=== PATIENT | female | born 1975 | race Caucasian/White ===

== ENCOUNTER 2016-12-02 04:06 | Emergency (ER) | payer OTHER ==
[~2016-12-02] VITALS: Ht 167.6 cm; Wt 84.1 kg
[2016-12-02] MEDS ORDERED: FURO20 PO (04:17)
[2016-12-02 06:28] VITALS: BP 133/84
== END 2016-12-02 06:29 | disposition home or self-care (01) ==
LOC: MERGE 04:07 → EMS 04:07
DX: R07.89 Other chest pain (principal); F17.210 Nicotine dependence, cigarettes, uncomplicated; X58.XXXA Exposure to other specified factors, initial encounter; Y93.89 Activity, other specified; Y92.89 Other specified places as the place of occurrence of the external cause; Y99.8 Other external cause status
CPT/HCPCS: 93005; 99283; 99406

== ENCOUNTER 2016-12-20 15:43 | Emergency (ER) | payer OTHER ==
[~2016-12-20] VITALS: Ht 167.6 cm; Wt 84.1 kg
[~2016-12-20 15:43] MED LIST: FURO20 PO
[2016-12-20 16:29] VITALS: BP 130/80
== END 2016-12-20 17:07 | disposition home or self-care (01) ==
LOC: EMS 15:45 → MERGE 15:45 → EMS 17:07
DX: R60.0 Localized edema (principal); Z87.891 Personal history of nicotine dependence
CPT/HCPCS: 99283

== ENCOUNTER 2016-12-27 03:28 | Emergency (ER) | payer OTHER ==
[~2016-12-27] VITALS: Ht 167.6 cm; Wt 83.2 kg
[2016-12-27 05:03] VITALS: BP 122/70
== END 2016-12-27 05:12 | disposition home or self-care (01) ==
LOC: EMS 03:30
DX: K02.9 Dental caries, unspecified (principal)
CPT/HCPCS: 99283

== ENCOUNTER 2017-01-03 02:38 | Emergency (ER) | payer OTHER ==
[~2017-01-03] VITALS: Ht 167.6 cm; Wt 88.6 kg
[2017-01-03 03:16] VITALS: BP 136/90
== END 2017-01-03 03:37 | disposition home or self-care (01) ==
LOC: EMS 02:39
DX: R60.0 Localized edema (principal)
CPT/HCPCS: 99281; 99283

== ENCOUNTER 2017-01-10 07:03 | Emergency (ER) | payer OTHER ==
[~2017-01-10] VITALS: Ht 167.6 cm; Wt 81.0 kg
[2017-01-10] MEDS ORDERED: FURO20 PO (07:13)
[2017-01-10 08:37] VITALS: BP 135/77
[2017-01-10 08:40] LABS: BASOPHILS % (AUTO) 0.6 % (0.0-2.0); EOSINOPHILS % (AUTO) 0.8 % (1.0-6.0); HEMATOCRIT 41.8 % (36-46); HEMOGLOBIN 14.4 g/dL (12.0-16.0); LYMPHOCYTES # (AUTO) 2.4 K/uL (1.0-4.8); LYMPHOCYTES % (AUTO) 34.8 % (22.0-44.0); MEAN CORPUSCULAR HEMOGLOBIN 29.4 pg (26.0-34.0); MEAN CORPUSCULAR HGB CONC 34.5 G/dL (31.0-37.0); MEAN CORPUSCULAR VOLUME 85 fL (80-100); MONOCYTES # (AUTO) 0.6 K/uL (0.1-1.0); MONOCYTES % (AUTO) 8.8 % (2.0-9.0); NEUTROPHILS # (AUTO) 3.9 K/uL (1.8-7.7); PLATELET COUNT (AUTO) 230 K/uL (150-450); RED CELL DISTRIBUTION WIDTH 13.4 % (11.5-14.5)
[2017-01-10 08:57] LABS: ALANINE AMINOTRANSFERASE 16 U/L (12-78); ALBUMIN 3.1 g/dL (3.4-5.0); ANION GAP 4 mmol/L (8-16); ASPARTATE AMINOTRANSFERASE 16 U/L (15-37); BILIRUBIN,TOTAL 0.2 mg/dL (0.1-1.0); CALCIUM, TOTAL 8.7 mg/dL (8.8-10.5); CARBON DIOXIDE 32 mmol/L (22-29); CHLORIDE 101 mmol/L (98-107); CREATININE 0.64 mg/dL (0.60-1.30); GLOMERULAR FILTR. RATE CALC > 60 mL/min (>60); SODIUM SERUM 137 mmol/L (136-145); TOTAL PROTEIN, SERUM 6.5 g/dL (6.4-8.2); UREA NITROGEN, BLOOD 10 mg/dL (7-18)
[2017-01-10 08:58] LABS: POTASSIUM 2.7 mmol/L (3.5-5.1)
[2017-01-10] MEDS ORDERED: POTASSIUM CHLORIDE 20 MEQ ER TABLET PO ONE (09:30)
== END 2017-01-10 10:02 | disposition home or self-care (01) ==
LOC: EMS 07:04
DX: R60.0 Localized edema (principal); E87.6 Hypokalemia; M79.661 Pain in right lower leg; M79.662 Pain in left lower leg; Z98.84 Bariatric surgery status
CPT/HCPCS: 99284

== ENCOUNTER 2017-01-27 16:10 | Emergency (ER) | payer OTHER ==
[~2017-01-27] VITALS: Ht 167.6 cm; Wt 84.1 kg
[2017-01-27] MEDS ORDERED: POTA25TA7 PO (16:44)
[2017-01-27 18:35] VITALS: BP 141/82
== END 2017-01-27 18:41 | disposition home or self-care (01) ==
LOC: EMS 16:11
DX: R60.0 Localized edema (principal); Z76.0 Encounter for issue of repeat prescription
CPT/HCPCS: 99283; 99284

== ENCOUNTER 2017-02-12 16:17 | Emergency (ER) | payer OTHER ==
[~2017-02-12] VITALS: Ht 167.6 cm; Wt 87.7 kg
[~2017-02-12 16:17] MED LIST changes: +POTA25TA7 PO
[2017-02-12 16:52] VITALS: BP 134/100
== END 2017-02-12 17:16 | disposition home or self-care (01) ==
LOC: EMS 16:21
DX: Z76.0 Encounter for issue of repeat prescription (principal); R03.0 Elevated blood-pressure reading, without diagnosis of hypertension
CPT/HCPCS: 99283

== ENCOUNTER 2017-02-28 03:34 | Emergency (ER) | payer OTHER ==
[~2017-02-28] VITALS: Ht 170.2 cm; Wt 84.1 kg
[2017-02-28 04:00] VITALS: BP 132/77
== END 2017-02-28 04:25 | disposition home or self-care (01) ==
LOC: EMS 03:35
DX: R60.0 Localized edema (principal)
CPT/HCPCS: 99283

== ENCOUNTER 2017-05-05 08:08 | Emergency (ER) | payer OTHER ==
[~2017-05-05] VITALS: Ht 167.6 cm; Wt 86.4 kg
[2017-05-05] MEDS ORDERED: BENZOCAINE/MENTHOL LOZENGE [8 LOZENGES/PACKET] PO ONE (09:45)
[2017-05-05 10:44] LABS: RAPID GROUP A STREP NEGATIVE (NEGATIVE)
[2017-05-05 10:48] LABS: INFLUENZA TYPE A NEGATIVE FOR TYPE A (NEGATIVE); INFLUENZA TYPE B POSITIVE FOR TYPE B (NEGATIVE)
[2017-05-05 10:55] VITALS: BP 135/89
== END 2017-05-05 11:23 | disposition home or self-care (01) ==
LOC: EMS 08:13
DX: J11.1 Influenza due to unidentified influenza virus with other respiratory manifestations (principal); J02.9 Acute pharyngitis, unspecified; H92.09 Otalgia, unspecified ear; Z98.84 Bariatric surgery status
CPT/HCPCS: 87430; 87804; 99284

== ENCOUNTER 2019-04-16 03:18 | Emergency (ER) | payer OTHER ==
[~2019-04-16] VITALS: Ht 167.6 cm; Wt 102.3 kg
[2019-04-16] MEDS ORDERED: IBUPROFEN 600 MG TABLET PO ONE (04:30)
[2019-04-16] MEDS ORDERED: CLINDAMYCIN HCL 150 MG CAPSULE PO ONE (04:30)
[2019-04-16 05:16] VITALS: BP 130/80
== END 2019-04-16 05:17 | disposition home or self-care (01) ==
LOC: EMS 03:18
DX: K04.7 Periapical abscess without sinus (principal)

== ENCOUNTER 2019-07-17 10:59 | Emergency (ER) | payer OTHER ==
[~2019-07-17] VITALS: Ht 167.6 cm; Wt 109.0 kg
[2019-07-17 13:47] LABS: BASOPHILS % (AUTO) 1.1 % (0.0-2.0); EOSINOPHILS % (AUTO) 0.8 % (1.0-6.0); HEMOGLOBIN 12.6 g/dL (12.0-16.0); LYMPHOCYTES % (AUTO) 25.9 % (22.0-44.0); MEAN CORPUSCULAR HEMOGLOBIN 23.5 pg (26.0-34.0); MEAN CORPUSCULAR HGB CONC 32.3 G/dL (31.0-37.0); MEAN CORPUSCULAR VOLUME 73 fL (80-100); MONOCYTES # (AUTO) 0.8 K/uL (0.1-1.0); MONOCYTES % (AUTO) 10.5 % (2.0-9.0); NEUTROPHILS # (AUTO) 4.7 K/uL (1.8-7.7); NEUTROPHILS % (AUTO) 61.7 % (40.0-70.0); PLATELET COUNT (AUTO) 337 K/uL (150-450); RED BLOOD CELL COUNT(AUTO) 5.35 MIL/uL (4.00-5.20); RED CELL DISTRIBUTION WIDTH 16.6 % (11.5-14.5)
[2019-07-17 14:05] LABS: ANION GAP 9 mmol/L (8-16); CALCIUM, TOTAL 9.2 mg/dL (8.8-10.5); CARBON DIOXIDE 29 mmol/L (22-29); CHLORIDE 98 mmol/L (98-107); CREATININE 0.46 mg/dL (0.60-1.30); GLOMERULAR FILTR. RATE CALC > 60 mL/min (>60); GLUCOSE,RANDOM 102 mg/dL (70-110); POTASSIUM 3.2 mmol/L (3.5-5.1); SODIUM SERUM 136 mmol/L (136-145); UREA NITROGEN, BLOOD 11 mg/dL (7-18)
[2019-07-17 14:15] LABS: ALANINE AMINOTRANSFERASE 16 U/L (12-78); ALBUMIN 3.9 g/dL (3.4-5.0); ALKALINE PHOSPHATASE 74 U/L (46-116); ASPARTATE AMINOTRANSFERASE 18 U/L (15-37); BILIRUBIN,TOTAL 0.4 mg/dL (0.1-1.0); CREATINE KINASE, TOTAL ONLY 33 U/L (26-192); TOTAL PROTEIN, SERUM 8.8 g/dL (6.4-8.2)
[2019-07-17 14:16] LABS: B-TYPE NATRIURETIC PEPTIDE 7 pg/mL (0-100)
[2019-07-17] MEDS ORDERED: POTASSIUM CHLORIDE 20 MEQ ER TABLET PO ONE (14:30)
[2019-07-17 15:00] VITALS: BP 154/83
== END 2019-07-17 15:15 | disposition home or self-care (01) ==
LOC: EMS 11:00
DX: R60.0 Localized edema (principal)
CPT/HCPCS: 93005

== ENCOUNTER 2019-12-07 08:38 | Emergency (ER) | payer OTHER ==
[~2019-12-07] VITALS: Ht 170.2 cm; Wt 120.5 kg
[2019-12-07 08:56] VITALS: BP 135/81
== END 2019-12-07 09:17 | disposition home or self-care (01) ==
LOC: EMS 08:40
DX: R60.0 Localized edema (principal); I10 Essential (primary) hypertension; Z76.0 Encounter for issue of repeat prescription
CPT/HCPCS: Z7502

== ENCOUNTER 2020-02-02 05:06 | Emergency (ER) | payer OTHER ==
[~2020-02-02] VITALS: Ht 170.2 cm; Wt 125.0 kg
[2020-02-02] MEDS ORDERED: ACETAMINOPHEN 325 MG TABLET PO ONE (06:15)
[2020-02-02] MEDS ORDERED: LIDOCAINE 5% TRANSDERMAL PATCH TD ONE (06:15)
[2020-02-02 07:10] VITALS: BP 132/84
[2020-02-02] MEDS ORDERED: IBUPROFEN 400 MG TABLET PO ONE (07:15)
== END 2020-02-02 07:32 | disposition home or self-care (01) ==
LOC: EMS 05:07
DX: M79.622 Pain in left upper arm (principal); I10 Essential (primary) hypertension
CPT/HCPCS: Z7502; Z7610

== ENCOUNTER 2020-02-17 00:55 | Emergency (ER) | payer OTHER ==
[~2020-02-17] VITALS: Ht 170.2 cm; Wt 122.7 kg
[2020-02-17] MEDS ORDERED: FURO-152 PO (01:15)
[2020-02-17 02:15] VITALS: BP 148/82
== END 2020-02-17 02:35 | disposition home or self-care (01) ==
LOC: EMS 00:59
DX: R60.0 Localized edema (principal); Z76.0 Encounter for issue of repeat prescription
CPT/HCPCS: Z7502

== ENCOUNTER 2020-04-06 15:23 | Emergency (ER) | payer OTHER ==
[~2020-04-06] VITALS: Ht 177.8 cm; Wt 104.5 kg
[~2020-04-06 15:23] MED LIST changes: +FURO-152 PO; -FURO20 PO; -POTA25TA7 PO
[2020-04-06 17:11] VITALS: BP 144/99
== END 2020-04-06 18:01 | disposition home or self-care (01) ==
LOC: EMS 15:23
DX: M79.2 Neuralgia and neuritis, unspecified (principal); Z76.0 Encounter for issue of repeat prescription
CPT/HCPCS: 93971; 99284; Z7502

== ENCOUNTER 2020-04-08 19:48 | Emergency (ER) | payer OTHER ==
[~2020-04-08] VITALS: Ht 170.2 cm; Wt 115.9 kg
[2020-04-08] MEDS ORDERED: IBUPROFEN 600 MG TABLET PO ONE (20:15)
[2020-04-08 21:21] VITALS: BP 122/76
== END 2020-04-08 22:08 | disposition home or self-care (01) ==
LOC: EMS 19:50
DX: S90.32XA Contusion of left foot, initial encounter (principal); I10 Essential (primary) hypertension; Z79.899 Other long term (current) drug therapy; W01.0XXA Fall on same level from slipping, tripping and stumbling without subsequent striking against object, initial encounter; Y93.89 Activity, other specified; Y92.89 Other specified places as the place of occurrence of the external cause; Y99.8 Other external cause status
CPT/HCPCS: 99283

== ENCOUNTER 2020-06-11 05:53 | Emergency (ER) | payer OTHER ==
[~2020-06-11] VITALS: Ht 170.2 cm; Wt 120.5 kg
[2020-06-11 06:02] VITALS: BP 140/105
== END 2020-06-11 06:30 | disposition home or self-care (01) ==
LOC: EMS 05:56
DX: I10 Essential (primary) hypertension (principal); Z76.0 Encounter for issue of repeat prescription
CPT/HCPCS: 99281; Z7502

== ENCOUNTER 2023-10-20 09:41 | Inpatient (IN) | payer OTHER ==
[~2023-10-20] VITALS: Ht 170.2 cm; Wt 125.0 kg
[2023-10-20 09:43] VITALS: TEMP 98.2
[2023-10-20 10:20] LABS: BASOPHILS % (AUTO) 0.6 % (0.0-2.0); EOSINOPHILS % (AUTO) 0.2 % (1.0-6.0); HEMATOCRIT 29.6 % (36-46); HEMOGLOBIN 8.8 g/dL (12.0-16.0); LYMPHOCYTES # (AUTO) 1.5 K/uL (1.0-4.8); LYMPHOCYTES % (AUTO) 11.3 % (22.0-44.0); MEAN CORPUSCULAR HGB CONC 29.8 G/dL (31.0-37.0); MEAN CORPUSCULAR VOLUME 60 fL (80-100); MONOCYTES # (AUTO) 1.2 K/uL (0.1-1.0); MONOCYTES % (AUTO) 8.8 % (2.0-9.0); NEUTROPHILS # (AUTO) 10.6 K/uL (1.8-7.7); NEUTROPHILS % (AUTO) 79.1 % (40.0-70.0); PLATELET COUNT (AUTO) 459 K/uL (150-450); RED BLOOD CELL COUNT(AUTO) 4.92 MIL/uL (4.00-5.20); RED CELL DISTRIBUTION WIDTH 19.4 % (11.5-14.5); WHITE BLOOD COUNT (AUTO) 13.5 K/uL (4.5-11.0)
[2023-10-20 10:25] LABS: ANION GAP 11 mmol/L (8-16); CALCIUM, TOTAL 8.5 mg/dL (8.8-10.5); CARBON DIOXIDE 27 mmol/L (22-29); CHLORIDE 98 mmol/L (98-107); CREATININE 0.74 mg/dL (0.60-1.30); GLOMERULAR FILTR. RATE CALC > 60 mL/min (>60); GLUCOSE,RANDOM 115 mg/dL (70-110); SODIUM SERUM 136 mmol/L (136-145); UREA NITROGEN, BLOOD 5 mg/dL (7-18)
[2023-10-20 10:33] LABS: RBC MORPHOLOGY COMMENT ABNORMAL RBC MORPH
[2023-10-20 10:37] LABS: ALANINE AMINOTRANSFERASE 12 U/L (12-78); ALKALINE PHOSPHATASE 91 U/L (46-116); ASPARTATE AMINOTRANSFERASE 17 U/L (15-37); BILIRUBIN,TOTAL 0.6 mg/dL (0.1-1.0); HCG,QUANTITATIVE < 1 mIU/mL (0-6); LIPASE 15 U/L (16-77); TOTAL PROTEIN, SERUM 7.9 g/dL (6.4-8.2)
[2023-10-20 11:05] LABS: APPEARANCE,URINE CLEAR (CLEAR); BILIRUBIN,URINE NEGATIVE (NEGATIVE); COLOR,URINE YELLOW (YELLOW); GLUCOSE, URINE (UA) NEGATIVE (NEGATIVE); LEUKOCYTE ESTERASE ,URINE MODERATE (NEGATIVE); NITRATE,URINE NEGATIVE (NEGATIVE); OCCULT BLOOD,URINE NEGATIVE (NEGATIVE); PH,URINE 8.5 (5.0-8.0); PROTEIN,URINE 30-70 mg/dL (NEGATIVE)
[2023-10-20 11:09] LABS: RBC,URINE 0-2 /HPF (0-2)
[2023-10-20 11:10] LABS: BACTERIA,URINE Moderate /HPF (None Seen); SQUAMOUS EPITHELIAL CELL,UR Moderate /LPF (None Seen)
[2023-10-20 14:20] VITALS: BP 133/71; PULSE 79; RESP 18; O2SAT 99
[2023-10-20] MEDS: PIPERACILLIN/TAZO 3.375 GM/D5W 50 ML IV ONE (14:52)
[2023-10-20] MEDS ORDERED: MORPHINE SULFATE 2 MG/ML SYRINGE IVP PRN (15:00)
[2023-10-20] MEDS ORDERED: IPRATROPIUM BROMIDE 0.5 MG/2.5 ML NEB SOLUTION NEB PRN (15:00)
[2023-10-20] MEDS ORDERED: ALBUTEROL SULFATE 2.5 MG/0.5 ML NEB SOLUTION NEB PRN (15:00)
[2023-10-20] MEDS ORDERED: ONDANSETRON HCL 4 MG/2 ML VIAL IVP PRN (15:00)
[2023-10-20] MEDS ORDERED: HYDROCODONE/ACETAMINOPHEN 5-325 MG TABLET PO PRN (15:00)
[2023-10-20] MEDS ORDERED: ACETAMINOPHEN 325 MG TABLET PO PRN (15:00)
[2023-10-20] MEDS ORDERED: ZOLPIDEM TARTRATE 5 MG TABLET PO PRN (15:00)
[2023-10-20] MEDS ORDERED: MAGNESIUM HYDROXIDE SUSPENSION 30 ML UDCUP PO PRN (15:00)
[2023-10-20] MEDS ORDERED: BISACODYL 10 MG RECTAL RECTAL SUPPOSITORY PR PRN (15:00)
[2023-10-20] MEDS ORDERED: HEPARIN SODIUM,PORCINE 5,000 UNITS/ML VIAL SQ SCH (16:00)
[2023-10-20] MEDS ORDERED: PIPERACILLIN/TAZO 3.375 GM/D5W 50 ML IV SCH ×2 (21:00)
[2023-10-21] MEDS ORDERED: PANTOPRAZOLE SODIUM 40 MG/VIAL IVP SCH (09:00)
== END 2023-10-20 15:29 | disposition left against medical advice (07) ==
LOC: EMS 09:41 → EDH 14:52 → UNDODISIN 15:28
PROVIDERS: ADMIT Hospitalist; ATTEND Hospitalist
DX: K80.00 Calculus of gallbladder with acute cholecystitis without obstruction (principal); I10 Essential (primary) hypertension; R11.0 Nausea; Z53.29 Procedure and treatment not carried out because of patient's decision for other reasons
CPT/HCPCS: 74176; 76700; 80048; 80076; 81001; 83690; 84702; 85025; 87040; 87086; 87186; 99285; G0378; J2543